=== PATIENT | male | born 1970 | race African-American/Black ===

== ENCOUNTER 2023-06-27 01:49 | Emergency (ER) | payer BC ==
[2023-06-27] MEDS ORDERED: diphenhydrAMINE 50 MG/ML VIAL ONE (03:53)
[2023-06-27] MEDS ORDERED: Acetaminophen 500 MG TAB ONE (03:53)
[2023-06-27 04:15] LABS: #Eosinphils 0.1 thou/uL (0.0-0.7); #Monocytes 0.9 thou/uL (0.11-0.59); #Neutrophils 9.7 thou/uL (1.40-6.50); %Basophils 0.2 % (0.0-1.0); %Eosinophils 0.7 % (0.0-10.0); %Lymphocytes 12.5 % (21.0-51.0); %Neutrophils 79.3 % (42.0-75.0); Hematocrit 46.8 % (42.0-52.0); Hemoglobin 15.4 g/dL (14.0-18.0); Mean Corpuscular HGB CONC 32.9 g/dL (32.0-36.0); Mean Corpuscular Hemoglobin 28.5 pg (27.0-31.0); Mean Corpuscular Volume 86.5 fl (78.0-98.0); Platelet Count 291 10x3/uL (130-400); RBC Distribution Width 14.6 % (11.5-14.5); Red Blood Cell (RBC) Count 5.41 mill/uL (4.70-6.10); White Blood Cell (WBC) Count 12.3 10x3/uL (4.8-10.8)
[2023-06-27] MEDS ORDERED: Prochlorperazine 10 MG/2 ML VIAL ONE (04:15)
[2023-06-27 04:37] LABS: ALT (SGPT) 31 U/L (8-55); AST (SGOT) 25 U/L (5-34); Albumin 4.5 g/dL (3.5-5.0); Alkaline Phosphatase 54 U/L (40-110); Anion Gap 13 mmol/L (10-20); BUN (Urea Nitrogen) 13 mg/dL (8.4-25.7); Bilirubin, Total 0.6 mg/dL (0.2-1.2); Calc. Creatinine Clearance 0 mL/min (70-130); Calcium 9.4 mg/dL (7.8-10.44); Carbon Dioxide 26 mmol/L (22-29); Chloride 104 mmol/L (98-107); Estimated GFR 64; Globulin 3.8 g/dL (2.4-3.5); Glucose 127 mg/dL (70-105); Magnesium 1.9 mg/dL (1.6-2.6); Potassium 4.4 mmol/L (3.5-5.1); Protein, Total 8.3 g/dL (6.0-8.3); Sodium 139 mmol/L (136-145)
[2023-06-27 04:41] LABS: Troponin I Less than 0.010 ng/mL (< 0.028)
[2023-06-27] MEDS ORDERED: Ketorolac Tromethamine 30 MG (1 mL) VIAL ONE (05:56)
== END 2023-06-27 06:10 | disposition home or self-care (01) ==
LOC: ERS 01:49
DX: G43.909 Migraine, unspecified, not intractable, without status migrainosus (principal); I10 Essential (primary) hypertension; Z79.899 Other long term (current) drug therapy
CPT/HCPCS: 70450; 71045; 80053; 83735; 84484; 85025; 93005; 96365; 96375; J0780; J1200; J1885

== ENCOUNTER 2025-03-18 09:35 | Emergency (ER) | payer BC ==
[2025-03-18] MEDS ORDERED: Fluorescein Opthalmic Strip ONE (10:08)
[2025-03-18] MEDS ORDERED: Proparacaine 0.5% Opth 15 ML BOT ONE (10:08)
== END 2025-03-18 11:18 | disposition home or self-care (01) ==
LOC: ERS 09:35
DX: H53.9 Unspecified visual disturbance (principal); I10 Essential (primary) hypertension; Z87.891 Personal history of nicotine dependence; Z79.899 Other long term (current) drug therapy
CPT/HCPCS: 99283